=== PATIENT | male | born 1990 | race Caucasian/White ===

== ENCOUNTER 2021-01-16 15:24 | Emergency (ER) | payer SELFPAY ==
[2021-01-16 15:35] VITALS: BP 118/68; PULSE 69; RESP 20; TEMP 35.9; O2SAT 100
[2021-01-16 18:09] VITALS: BP 126/77; PULSE 67; PULSE 70; RESP 19; O2SAT 98; O2SAT 99
[2021-01-16] MEDS: levETIRAcetam 1000MG/NACL100ML 1,000 MG/100 ML BAG 400 MG IVPB (18:40)
[2021-01-16 18:48] LABS: Hematocrit 41.2 % (42.0-52.0); Hemoglobin 13.9 g/dL (14.0-18.0); Mean Corpuscular HGB Conc 33.7 g/dl (32-36); Mean Corpuscular Hemoglobin 31.4 pg (26-34); Mean Corpuscular Volume 93.2 fl (80-100); Mean Platelet Volume 10.1 fl (7.4-10.4); Platelet Count Result 225 k/mm3 (150-375); Red Blood Count 4.42 M/mm3 (4.6-6.20); Red Cell Distribution Width 13.3 % (11.5-14.5); White Blood Count 19.5 K/mm3 (4.5-10.0)
[2021-01-16 19:04] LABS: Band Neutrophils Percent 8 % (0-6); Lymphocytes Absolute Manual 0.58 K/mm3 (1.1-4.5); Monocytes Absolute Manual 0.19 K/mm3 (0.1-0.90); Monocytes Percent Manual 1 % (3-9); Neutrophils Absolute Manual 18.72 K/mm3 (1.3-6.7); Neutrophils Percent Manual 88 % (46-73); Platelet Estimate Adequate (Adequate); Total Cells Counted 100
[2021-01-16 19:05] LABS: Alanine Aminotransferase 19 U/L (4-50); Albumin Level 4.6 g/dL (3.5-5.1); Alkaline Phosphatase 88 U/L (38-126); Anion Gap 6 mmol/L (8-16); Aspartate Amino Transferase 25 U/L (17-59); Bilirubin,Total 0.6 mg/dL (0.2-1.3); Blood Urea Nitrogen 7 mg/dL (9-20); Calcium 8.8 mg/dL (8.4-10.2); Carbon Dioxide 23 mmol/L (22-30); Chloride 104 mmol/L (98-107); Estimated CRCL calculation 129 ml/min; Estimated Glomerular Filt Rate > 60; Glucose 116 mg/dL (65-110); Potassium 3.8 mmol/L (3.4-5.0); Sodium 133 mmol/L (137-145)
--- NOTE | 2021-01-16 19:09 | ED.SEIZURE ---
HPI - Seizure General Chief Complaint: Seizure Stated Complaint: seizure Time Seen by Provider: 01/16/21 18:12 Source: patient Mode of arrival: EMS Limitations: no limitations History of Present Illness HPI Narrative: 30-year-old with a history of seizure disorder on Keppra here with complaints of possibly having seizure while he was sleeping. Patient presently has no complaints. He states that he had initially headache soon after seizure but it is now resolved. Patient denies any fever or chills. Patient states that he missed couple doses of Keppra as he overslept. Denies alcohol use. MD complaint: seizure Description of Episode: bladder incontinence Trauma: No Seizure History: Yes Place: home Treatments prior to arrival: none Related Data Home Medications Medication Instructions Recorded Confirmed levetiracetam [Keppra] 500 mg PO BID 01/16/21 01/16/21 Allergies Allergy/AdvReac Type Severity Reaction Status Date / Time No Known Allergies Allergy Unverified 01/16/21 18:12 Review of Systems Review of Systems: All systems reviewed & are unremarkable except as noted in HPI and below Constitutional: Constitutional: Reports no additional constitutional complaints Eyes: Eyes: Reports no additional eye complaints ENT: Reports system reviewed and no additional complaints, except as documented Cardiovascular: Cardiovascular: Reports no additional cardiovascular complaints Respiratory: Respiratory: Reports no additional respiratory complaints Gastrointestinal: Gastrointestinal: Reports no additional gastrointestinal complaints Musculoskeletal: Musculoskeletal: Reports no additional musculoskeletal complaints Neurologic: Reports system reviewed and no additional complaints, except as documented Hematologic/Lymphatic: Hematologic/Lymphatic: Reports no additional hematologic/lymphatic complaints Exam Narrative: GENERAL: Well-appearing, well-nourished, and in no acute distress. HEAD: Normocephalic, atraumatic. EYES: PERRLA and EOMI.. NECK: Supple. CHEST: Clear to auscultation. No respiratory distress. HEART: Regular rate and rhythm. No murmur heard. Normal peripheral pulses. ABDOMEN: Soft, nontender, nondistended, normal active bowel sounds. EXTREMITIES: Normal range of motion. No edema. SKIN: Warm, dry, no rash. NEURO: No focal deficits. Alert and oriented x3. PSYCH: Normal mood and affect. Course Course Emergency Course: Patient had no further episodes of seizures while he was here in the ER. I have given IV Keppra here in the ER he states that he has medication at home recommended him to take as prescribed Vital Signs Vital signs: Vital Signs Temperature 35.9 C L 01/16/21 15:35 Pulse Rate 69 01/16/21 15:35 Respiratory Rate 20 01/16/21 15:35 Blood Pressure 118/68 01/16/21 15:35 Pulse Oximetry 100 01/16/21 15:35 Temperature 35.9 C L 01/16/21 15:35 Pulse Rate 67 01/16/21 18:09 Respiratory Rate 19 01/16/21 18:09 Blood Pressure 126/77 01/16/21 18:09 Pulse Oximetry 98 01/16/21 18:09 MDM - Seizure MDM Narrative Medical decision making narrative: With given history of seizures and noncompliant with medication I would like to do CBC chemistry and load him with IV Keppra here in the ER as he is not having any symptoms , will monitor him. Lab Data Result diagrams: 01/16/21 18:41 01/16/21 18:41 Labs: Lab Results 01/16/21 01/16/21 Range/Units 18:41 18:41 WBC 19.5 H (4.5-10.0) K/mm3 RBC 4.42 L (4.6-6.20) M/mm3 Hgb 13.9 L (14.0-18.0) g/dL Hct 41.2 L (42.0-52.0) % MCV 93.2 (80-100) fl MCH 31.4 (26-34) pg MCHC 33.7 (32-36) g/dl RDW 13.3 (11.5-14.5) % Plt Count 225 (150-375) k/mm3 MPV 10.1 (7.4-10.4) fl Immature Gran % (Auto) Not Reportable Neut % (Auto) Not Reportable Lymph % (Auto) Not Reportable Lamar % (Auto) Not Reportable Eos % (Auto) Not Reportable Baso % (Auto) Not Rep
--- NOTE | 2021-01-16 19:15 | PC.NURSE ---
Assumed care of pt at this time. Pt alert and upright on stretcher. Pt updated on POC.
[2021-01-16 19:33] VITALS: BP 120/72; PULSE 75; RESP 18; O2SAT 99
== END 2021-01-16 19:35 | disposition home or self-care (01) ==
LOC: ANHED 19:22
PROVIDERS: Emergency Provider Family Medicine
DX: G40.919 Epilepsy, unspecified, intractable, without status epilepticus (principal)
CPT/HCPCS: 36415; 80053; 85025; 96365; 99284; J1953